=== PATIENT | male | born 1955 | race Caucasian/White ===

== ENCOUNTER 2021-09-08 17:18 | Inpatient (IN) | payer OTHER ==
[~2021-09-08] VITALS: Ht 167.6 cm; Wt 74.8 kg
[2021-09-08 18:06] LABS: HEMOGLOBIN 15.1 gm/dl (14.0-17.5); RED BLOOD COUNT 4.38 M/UL (4.20-5.50)
[2021-09-08 18:30] LABS: BUN/CREATININE RATIO 18 (0-10)
[2021-09-09] MEDS ORDERED: MIRTAZAPINE30 MG PO (08:39)
[2021-09-09] MEDS ORDERED: SIMVASTATIN20 MG PO (08:40)
[2021-09-09] MEDS ORDERED: LEVOTHYROXINE150 MCG PO (08:40)
[2021-09-09] MEDS ORDERED: TRAZODONE HCL150 MG PO (08:40)
[2021-09-09] MEDS ORDERED: VALIUM 5 MG TAB5 MG PO (08:41)
[2021-09-09] MEDS ORDERED: PERCOCET 5/325 T1 EA PO (14:29)
== END 2021-09-09 16:36 | disposition home or self-care (01) | DRG 355 ==
LOC: ER1 17:18 → MED SURG 4 22:47 → CDU 22:47 → MED SURG 4 09-09 04:50
PROVIDERS: Emergency Medicine; ADMIT Surgery
PROC: 0WQF0ZZ Repair Abdominal Wall, Open Approach (ICD-10-PCS; principal; 2021-09-09 09:30)
DX: K42.0 Umbilical hernia with obstruction, without gangrene (principal); Z20.822 Contact with and (suspected) exposure to COVID-19; E03.9 Hypothyroidism, unspecified; E78.5 Hyperlipidemia, unspecified; F41.9 Anxiety disorder, unspecified; Z90.49 Acquired absence of other specified parts of digestive tract
CPT/HCPCS: 80053; 81001; 85025; 96374; 99285; J0690; J1100; J1200; J2001; J2250; J2270; J2405; J2704; J3010; J7030; J7120; Q9967; U0002

== ENCOUNTER 2021-09-12 17:08 | Emergency (ER) | payer OTHER ==
[~2021-09-12 17:08] MED LIST: LEVOTHYROXINE150 MCG PO; MIRTAZAPINE30 MG PO; PERCOCET 5/325 T1 EA PO; SIMVASTATIN20 MG PO; TRAZODONE HCL150 MG PO; VALIUM 5 MG TAB5 MG PO
[2021-09-12] MEDS ORDERED: AMOX TR-K CLV1 EAC4 PO (18:30)
== END 2021-09-12 18:42 | disposition home or self-care (01) ==
LOC: ER1 17:08
DX: Z48.815 Encounter for surgical aftercare following surgery on the digestive system (principal)
CPT/HCPCS: 99282